=== PATIENT | female | born 1975 | race Caucasian/White ===

== ENCOUNTER 2022-07-09 19:49 | Emergency (ER) | payer BC ==
[~2022-07-09] VITALS: Ht 167.6 cm; Wt 111.6 kg
[2022-07-09 20:30] VITALS: BP_SYST 122
[2022-07-09 20:37] LABS: BASOPHILS # (AUTO) 0.1 K/uL (0.0-0.2); BASOPHILS % (AUTO) 0.7 % (0.0-2.0); EOSINOPHILS # (AUTO) 0.1 K/uL (0.0-0.4); EOSINOPHILS % (AUTO) 0.5 % (0.0-4.0); HEMATOCRIT 39.4 % (36-48); LYMPHOCYTES # (AUTO) 1.4 K/uL (1.0-5.5); LYMPHOCYTES % (AUTO) 12.6 % (20.5-51.5); MEAN CORPUSCULAR VOLUME 82 fL (79.0-98.0); MONOCYTES # (AUTO) 0.4 K/uL (0.0-1.0); MONOCYTES % (AUTO) 3.7 % (1.7-9.3); NEUTROPHILS # (AUTO) 9.3 K/uL (1.8-7.7); NEUTROPHILS % (AUTO) 82.5 % (40.0-70.0); PLATELET COUNT (AUTO) 291 K/uL (130-430); RED BLOOD CELL COUNT(AUTO) 4.83 MIL/uL (4.2-6.2); RED CELL DISTRIBUTION WIDTH 13.2 % (9.0-15.0); WHITE BLOOD COUNT (AUTO) 11.2 K/uL (4.8-10.8)
[2022-07-09 20:56] LABS: CALCIUM 8.7 mg/dL (8.4-11.0); CREATININE 0.97 mg/dL (0.55-1.30); POTASSIUM 4.1 mmol/L (3.5-5.1)
[2022-07-09 21:00] LABS: BILIRUBIN,URINE NEGATIVE (NEGATIVE); CLARITY/URINE CLEAR (CLEAR); COLOR,URINE YELLOW (YELLOW); GLUCOSE,URINE NEGATIVE (NEGATIVE); KETONES,URINE 1+ (NEGATIVE); LEUKOCYTE ESTERASE ,URINE NEGATIVE (NEGATIVE); NITRITE, URINE NEGATIVE (NEGATIVE); PROTEIN URINE NEGATIVE (NEGATIVE); UROBILINOGEN,URINE 0.2 (0.2-1.0)
--- NOTE | 2022-07-09 21:01 | NUR ---
PT HERE C/O EPIGASTRIC PAIN RADIATES TO RT SHOULDER X1 5DAYS. PT STATED THAT PAIN STARTED LAST TUESDAY. PER PT SHE WENT TO URGENT CARE TODAY AND WAS TOLD TO GO TO ER TO RULE OUT GALLSTONES. PT DENIES N/V/D, DENIES NAT PMh;DENIES PT AAOX4, PENDING MD HENDRIX
[2022-07-09 21:02] LABS: ALBUMIN 3.2 g/dL (3.4-4.8); TOTAL BILIRUBIN 0.5 mg/dL (0.0-1.0)
[2022-07-09 21:47] LABS: BLOOD, URINE TRACE (NEGATIVE)
[2022-07-09 21:49] LABS: BACTERIA,URINE FEW /HPF (None Seen); MUCUS,URINE None Seen /LPF (None Seen); RBC,URINE 0-3 /HPF (0-3); WBC,URINE 0-3 /HPF (0-3)
--- NOTE | 2022-07-09 23:34 | NUR ---
Patient to ER bed 1 to gown for evaluation. Side rails up. Report given to Jess FARAH.
--- NOTE | 2022-07-09 23:35 | NUR ---
ER at bedside examining patient.
[2022-07-10 02:20] VITALS: BP_SYST 130
--- NOTE | 2022-07-10 02:30 | NUR ---
Dr. Zuniga at bedside.
[2022-07-10] MEDS ORDERED: traMADol HCL HCL 50 MG TABLET (ULTRAM) PO ONE (02:45)
[2022-07-10] MEDS ORDERED: HYDR-3917 PO ×5 (03:00→03:21)
[2022-07-10] MEDS ORDERED: ONDA-8 TL ×3 (03:00→03:11)
--- NOTE | 2022-07-10 03:27 | NUR ---
DC PT HOME AAOX4, NO SOB NOTED AND NAD. DC INSTRUCTION WERE GIVEN TO PT, ALSO INSTRUCTED TO F/U WITH HER PCP. SHE VERBALIZED UNDERSTANDING
== END 2022-07-10 03:27 | disposition home or self-care (01) ==
LOC: SED 19:49
DX: K80.20 Calculus of gallbladder without cholecystitis without obstruction (principal); R10.11 Right upper quadrant pain; R11.10 Vomiting, unspecified; M25.511 Pain in right shoulder; Z79.899 Other long term (current) drug therapy
CPT/HCPCS: 36415; 76705; 76830-TC; 76857; 80053; 81000; 81025; 85025; 99284

== ENCOUNTER 2024-05-18 08:59 | Day surgery (SDC) | payer OTHER ==
[~2024-05-18] VITALS: Ht 167.6 cm; Wt 117.9 kg
[~2024-05-18 08:59] MED LIST: HYDR-3917 PO; ONDA-8 TL
[2024-05-18 09:54] LABS: HCG,QUAL RESULT NEGATIVE (NEGATIVE)
[2024-05-18] MEDS ORDERED: ACETAMINOPHEN I.V. 1000 MG 100 ML IV ONE (13:12)
[2024-05-18] MEDS ORDERED: HYDROmorphone 1 MG/ML INJ. CARTRIDGE IVP PRN ×2 (13:15)
[2024-05-18] MEDS ORDERED: METOCLOPRAMIDE HCL 10 MG/2 ML VIAL IVP PRN (13:15)
[2024-05-18] MEDS ORDERED: MEPERIDINE HCL/PF 25 MG/ML DISP.SYRIN IVP PRN (13:15)
[2024-05-18] MEDS ORDERED: LR 1,000 ML IV SCH (13:15)
[2024-05-18] MEDS ORDERED: hydrALAZINE HCL 20 MG/ML VIAL IVP PRN (13:15)
[2024-05-18] MEDS ORDERED: LABETALOL 100 MG/ 20ML VIAL IVP PRN (13:15)
[2024-05-18 14:06] VITALS: O2SAT 98
[2024-05-18] MEDS ORDERED: fentaNYL CITRATE/PF 100 MCG/2 ML AMP ONE (15:07)
[2024-05-18] MEDS ORDERED: OXYMETAZOLINE HCL 0.05% NASAL SPRAY NS ONE (15:07)
[2024-05-18 16:49] VITALS: BP_SYST 112; PULSE 67; RESP 17
== END 2024-05-18 17:40 | disposition home or self-care (01) ==
LOC: SDS 08:59 → SMU 09:01 → SDS 17:40
PROVIDERS: ATTEND Otolaryngology
DX: D38.5 Neoplasm of uncertain behavior of other respiratory organs (principal); J32.2 Chronic ethmoidal sinusitis; J34.2 Deviated nasal septum; J32.4 Chronic pansinusitis; E03.9 Hypothyroidism, unspecified; E66.3 Overweight; Z90.49 Acquired absence of other specified parts of digestive tract; Z68.41 Body mass index [BMI] 40.0-44.9, adult; Z79.890 Hormone replacement therapy; Z79.899 Other long term (current) drug therapy
CPT/HCPCS: 31297; 30520; 30140; 31256; 31255; 84703; 88304; 88305; 88311; J3490; J1100; J0171; J2250; J2405; J2704; J3010; J7120; J7030; C1726; J0131